=== PATIENT | male | born 2000 | race Caucasian/White ===

== ENCOUNTER → 2024-10-29 11:21 | Outpatient (REF) | payer OTHER, SELFPAY ==
[2024-10-29 14:42] LABS: Hepatitis B Surface Antibody Indeterminate
== END ==
LOC: OHS 11:21
PROVIDERS: ATTENDING PHYSICIAN Nurse Practitioner Family
DX: Z23 Encounter for immunization (principal)
CPT/HCPCS: 36415; 86480; 86706

== ENCOUNTER → 2025-01-30 08:58 | Outpatient (REF) | payer BC, SELFPAY | LOC: RAD 08:58 | PROVIDERS: ATTENDING PHYSICIAN Hospitalist | DX: M25.472 Effusion, left ankle (principal) | CPT/HCPCS: 93971 ==